=== PATIENT | female | born 1955 | race Caucasian/White ===

== ENCOUNTER 2019-07-25 05:52 | Day surgery (SDC) | payer OTHER ==
[~2019-07-25] VITALS: Ht 167.6 cm; Wt 57.6 kg
[~2019-07-25 05:52] MED LIST: CA C1TAB95 PO; CHOL200079 PO; IBAN150T16 PO; SODIUM CHLORIDE 0.9% 1000ML 0 ML IV ONE
[2019-07-25] MEDS ORDERED: SODIUM CHLORIDE 0.9% 1000ML 1,000 ML IV ONE (06:16)
[2019-07-25 06:37] VITALS: BP 101/57
[2019-07-25] MEDS ORDERED: LIDOCAINE HCL 1% 20 ML VIAL ONE (07:45)
[2019-07-25] MEDS ORDERED: PROPOFOL 10 MG/ML 20ML VIAL IV ONE ×2 (07:45→07:59)
[2019-07-25] MEDS ORDERED: EPINEPHRINE 1 MG/ML AMPULE ONE (07:47)
[2019-07-25] MEDS ORDERED: PHENYLEPHRINE HCL 10 MG/ML 1ML VIAL IV ONE (07:48)
[2019-07-25 08:09] VITALS: BP 100/50
[2019-07-25 08:14] VITALS: BP 100/51
[2019-07-25 08:19] VITALS: BP 117/64
--- NOTE | 2019-07-25 08:40 | NUR ---
PT LEFT VIA WHEELCHAIR IN PVT CAR D/C INSTRUCTIONS GIVEN TO SPOUSE WITH F/U APPT. PT STABLE NO COMPILATIONS.
== END 2019-07-25 08:40 | disposition home or self-care (01) ==
LOC: DAH 05:52 → ENDO 05:52
PROVIDERS: ATTEND Internal Medicine Gastroenterology
DX: Z12.11 Encounter for screening for malignant neoplasm of colon (principal); K63.89 Other specified diseases of intestine; M81.0 Age-related osteoporosis without current pathological fracture; Z88.8 Allergy status to other drugs, medicaments and biological substances; Z79.899 Other long term (current) drug therapy; Z85.3 Personal history of malignant neoplasm of breast; Z98.890 Other specified postprocedural states; Z72.89 Other problems related to lifestyle; Z88.1 Allergy status to other antibiotic agents; Z88.2 Allergy status to sulfonamides; Z83.3 Family history of diabetes mellitus
CPT/HCPCS: 45378; A4215; A4221; A4222; A4223; A4606; A4615; A4663; J0171; J2370; J2704 ×2; J7030; G0121

== ENCOUNTER → 2023-11-02 | Outpatient (CLI) | payer OTHER ==
[~2023-11-02] MED LIST changes: -SODIUM CHLORIDE 0.9% 1000ML 0 ML IV ONE
== END | disposition home or self-care (01) ==
LOC: OIH 07:42
PROVIDERS: ATTEND Internal Medicine Cardiovascular Disease
DX: Z13.6 Encounter for screening for cardiovascular disorders (principal)
CPT/HCPCS: 75571